=== PATIENT | female | born 1990 | race Asian ===

== ENCOUNTER → 2018-09-26 | Outpatient (CLI) | payer OTHER ==
[~2018-09-26] MED LIST: IMITREX100 MG PO; IMPLANON68 MG ID; PREDNISONE20 MG PO; TOPAMAX50 MG PO
== END ==
LOC: MHCPAIN 12:23
DX: G89.29 Other chronic pain (principal); M47.812 Spondylosis without myelopathy or radiculopathy, cervical region; R51 Headache
CPT/HCPCS: G0463

== ENCOUNTER → 2021-11-10 | Outpatient (CLI) | payer OTHER | LOC: COL.RAD 06:46 | DX: M50.222 Other cervical disc displacement at C5-C6 level (principal); G43.709 Chronic migraine without aura, not intractable, without status migrainosus ==